=== PATIENT | male | born 1980 | race Caucasian/White ===

== ENCOUNTER 2017-02-19 22:18 | Emergency (ER) | payer OTHER ==
[~2017-02-19] VITALS: Ht 175.3 cm; Wt 79.4 kg
[~2017-02-19 22:18] MED LIST: CIPRO250 M1 PO; NOHOMEMEDICATIONS; PERCOCET 5-3251 EACH PO; TAMSULOSIN HCL0.4 MG PO; VICODIN 5-5001 EACH PO
[2017-02-19] MEDS ORDERED: IBUPROFEN 200200 M1 PO (22:20)
[2017-02-19] MEDS ORDERED: PREDNISONE 5 MG5 M1 PO (22:20)
[2017-02-19] MEDS ORDERED: NEURONTIN 300300 M1 PO (23:56)
[2017-02-20 00:11] VITALS: BP 134/87
== END 2017-02-20 00:11 | disposition home or self-care (01) ==
LOC: ER 22:18
DX: K08.89 Other specified disorders of teeth and supporting structures (principal); F17.210 Nicotine dependence, cigarettes, uncomplicated; F15.10 Other stimulant abuse, uncomplicated; Z87.442 Personal history of urinary calculi; Z86.14 Personal history of Methicillin resistant Staphylococcus aureus infection; Z88.0 Allergy status to penicillin

== ENCOUNTER 2017-05-13 00:17 | Emergency (ER) | payer OTHER ==
[~2017-05-13] VITALS: Ht 175.3 cm; Wt 79.4 kg
[~2017-05-13 00:17] MED LIST changes: +IBUPROFEN 200200 M1 PO; +NEURONTIN 300300 M1 PO; +PREDNISONE 5 MG5 M1 PO
[2017-05-13] MEDS ORDERED: TRAMADOL 50 MG50 MG PO (02:29)
[2017-05-13] MEDS ORDERED: DOXYCYCLINE 10100 MG PO (02:29)
[2017-05-13 02:46] VITALS: BP 145/98
== END 2017-05-13 02:48 | disposition home or self-care (01) ==
LOC: ER 00:17
DX: L02.31 Cutaneous abscess of buttock (principal); F17.210 Nicotine dependence, cigarettes, uncomplicated; F10.99 Alcohol use, unspecified with unspecified alcohol-induced disorder; F15.90 Other stimulant use, unspecified, uncomplicated; Z87.442 Personal history of urinary calculi; Z88.0 Allergy status to penicillin